=== PATIENT | female | born 1990 | race Caucasian/White ===

== ENCOUNTER → 2023-06-14 10:44 | Outpatient (REF) | payer BC, SELFPAY | LOC: MRI 3T 10:44 | PROVIDERS: ATTENDING PHYSICIAN Specialist; FAMILY PHYSICIAN Physician Assistant Medical | DX: M54.14 Radiculopathy, thoracic region (principal); M54.16 Radiculopathy, lumbar region | CPT/HCPCS: 72146; 72148 ==

== ENCOUNTER → 2023-06-15 10:14 | Outpatient (REF) | payer BC, SELFPAY | LOC: RAD 10:14 | PROVIDERS: ATTENDING PHYSICIAN Obstetrics & Gynecology; FAMILY PHYSICIAN Physician Assistant Medical | DX: R10.2 Pelvic and perineal pain (principal) | CPT/HCPCS: 76830; 76856 ==

== ENCOUNTER → 2023-09-15 10:32 | Outpatient (REF) | payer BC, SELFPAY | LOC: HWRAD 10:32 | PROVIDERS: ATTENDING PHYSICIAN Obstetrics & Gynecology; FAMILY PHYSICIAN Physician Assistant Medical; REFERRING PHYSICIAN Obstetrics & Gynecology | DX: R19.09 Other intra-abdominal and pelvic swelling, mass and lump (principal) | CPT/HCPCS: 76830; 76856 ==

== ENCOUNTER → 2023-12-07 19:45 | Outpatient (REF) | payer BC, SELFPAY | LOC: MRI 3T 19:45 | PROVIDERS: ATTENDING PHYSICIAN Obstetrics & Gynecology; FAMILY PHYSICIAN Physician Assistant Medical | DX: N83.202 Unspecified ovarian cyst, left side (principal) | CPT/HCPCS: 72197; A9575 ==